=== PATIENT | male | born 1965 | race Caucasian/White ===

== ENCOUNTER 2016-12-30 14:44 | Emergency (ER) | payer SELFPAY ==
[~2016-12-30] VITALS: Ht 180.3 cm; Wt 113.4 kg
[~2016-12-30 14:44] MED LIST: ALBU10PO MC; ALBU8.5H6 IH; CYCL10TA2 PO; FLUT1DIS3 IH; METF10002 PO; NAPR500T3 PO; TRAM50TA PO
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
--- NOTE | 2016-12-30 15:43 | RAD ---
Indication cough for one month. Fever and shortness of breath. History of COPD. PA and lateral views of the chest were obtained. Comparison is made to an examination 12/06/2013. There is mild hyperexpansion. An acute parenchymal infiltrate is not seen. A significant change when compared to the previous exam is not seen. IMPRESSION: No acute or focal process. No significant change
[2016-12-30] MEDS ORDERED: IPRATRPIUM/ALBUTEROL 0.5/2.5MG 3 ML NEBU. NEB ONE (15:45)
--- NOTE | 2016-12-30 16:20 | EKG ---
[facility] [address] [place] [address] Test Date: 2016-12-30 Test Time: 15:22:30 Pat Name: KIMBERLY PALACIOS Department: Room: Gender: M [employer]: : 1965 Requested By: HAFSA BURT Order Number: [id number] Reading MD: Measurements Intervals [place] Rate: 86 P: 67 NV: 158 QRS: 83 QRSD: 92 T: 62 QT: 348 QTc: 419 Interpretive Statements SINUS RHYTHM NO SPECIFIC ECG ABNORMALITIES RI6.01 No previous ECG available for comparison
[2016-12-30 16:21] LABS: BASO # 0.1 x10^3/uL (0.0-0.2); BASO % 1 % (0-3); EOS % 3 % (0-3); HEMATOCRIT 42.6 % (39.0-53.0); HEMOGLOBIN 14.3 g/dL (13.0-17.5); LYMPH % 28 % (24-48); MEAN CORPUSCULAR HEMOGLOBIN 29 pg (25-35); MEAN CORPUSCULAR HGB CONC 34 g/dL (31-37); MEAN CORPUSCULAR VOLUME 87 fL (79-100); MONO % 9 % (0-9); NEUT % 58 % (31-73); PLATELET COUNT 313 x10^3/uL (140-400); RED BLOOD COUNT 4.88 x10^6/uL (4.30-5.70); RED CELL DISTRIBUTION WIDTH 13.7 % (11.5-14.5); WHITE BLOOD COUNT 10.7 x10^3/uL (4.0-11.0)
[2016-12-30 16:36] LABS: CALCIUM 9.2 mg/dL (8.5-10.1); GFR 78.8; POTASSIUM 4.3 mmol/L (3.5-5.1)
[2016-12-30 16:41] LABS: ALBUMIN 3.7 g/dL (3.4-5.0); ALBUMIN/GLOBULIN RATIO 1.1 (1.0-1.7); TOTAL BILIRUBIN 0.2 mg/dL (0.2-1.0); TOTAL PROTEIN 7.2 g/dL (6.4-8.2)
[2016-12-30 16:43] LABS: OBC FLU VALID
[2016-12-30 17:50] VITALS: BP 149/83
[2016-12-30] MEDS ORDERED: PREDNISONE 20 MG TABLET PO ONE (18:00)
[2016-12-30] MEDS ORDERED: VENTOLIN HFA18 GM INH (18:01)
[2016-12-30] MEDS ORDERED: PRED20TA PO (18:01)
[2016-12-30] MEDS ORDERED: OMEP20TA63 PO (18:01)
== END 2016-12-30 18:04 | disposition home or self-care (01) ==
LOC: ER 14:44
DX: J44.1 Chronic obstructive pulmonary disease with (acute) exacerbation (principal); R53.1 Weakness; R50.9 Fever, unspecified; J45.909 Unspecified asthma, uncomplicated; E11.9 Type 2 diabetes mellitus without complications; E78.00 Pure hypercholesterolemia, unspecified; I10 Essential (primary) hypertension; G89.29 Other chronic pain
CPT/HCPCS: 36415; 71020; 80053; 83880; 84484; 85027; 87804; 93005; 94640; 99285; J7512; J7620